=== PATIENT | male | born 1980 | race Caucasian/White ===

== ENCOUNTER 2025-01-07 14:03 | Outpatient (CLI) | payer MEDICAID ==
--- NOTE | 2025-01-07 16:18 | RADIOLOGY REPORT ---
EXAM: MR MRI LOWER EXTREMITY LEFT INDICATION: EFFUSION, LEFT ANKLE TECHNIQUE: Multiplanar and multisequence MR imaging of the left ankle was performed in the absence of gadolinium contrast. COMPARISON: None FINDINGS: [MEDIAL ANKLE]: Intact posterior tibialis, flexor hallucis longus, and flexor digitorum tendons.. Int act deltoid ligament. Intact spring ligament complex. [LOW LATERAL ANKLE]: Thickening along the anterior talofibular ligament without discrete discontinuit y correlate for low to intermediate grade sprain. Calcaneofibular ligament appears intact. Suspected peroneal brevis split tear from the malleolar inframalleolar segment. Distal peroneal brevis tendon i s intact. Peroneal longus is intact. [HIGH LATERAL ANKLE]: Intact anterior and posterior inferior tibiofibular ligaments. [ANTERIOR ANKLE]: Intact anterior tibialis, extensor digitorum longus, and extensor hallucis longus t endons. [POSTERIOR ANKLE]: No tibiotalar or subtalar joint effusion. Normal sinus Tarsi. Normal plantar fasci a. Normal Achilles tendon. No retrocalcaneal bursitis. [MIDFOOT]: Normal. [BONES]: No acute fracture, osseous contusion, or aggressive osseous lesion. [MUSCLES]: Normal. [NEUROVASCULAR]: Normal tarsal tunnel [OTHER]: Surrounding subcutaneous tissue IMPRESSION: 1. Suspected peroneal brevis split tear from the malleolar inframalleolar segment. 2. Thickening along the anterior talofibular ligament without discrete discontinuity correlate for lo w to intermediate grade sprain.
== END 2025-01-07 23:59 | disposition home or self-care (01) ==
LOC: MRI02 14:03
PROVIDERS: ATTEND Podiatrist Foot & Ankle Surgery
DX: M25.472 Effusion, left ankle (principal)
CPT/HCPCS: 73721